=== PATIENT | male | born 1970 | race African-American/Black ===

== ENCOUNTER 2019-12-09 21:06 | Inpatient (IN) ==
[2019-12-09 22:06] LABS: ABS Basophils 0.1 10^3/ul (0-0.2); ABS Eosinophils 0.3 10^3/ul (0-0.6); ABS Lymphocytes 1.4 10^3/ul (1.0-4.8); Eosinophil % 2.4 %; Hematocrit 34 % (42-52); Lymphocyte % 11.7 %; Mean Corpuscular HGB Conc 33 g/dL (31-36); Mean Corpuscular Hemoglobin 29 pg (27-31); Mean Corpuscular Volume 89 fL (80-94); Mean Platelet Volume 9.1 fL (7.4-10.4); Platelet Count 234 10^3/uL (150-450); Red Blood Count 3.79 10^6 /uL (4.18-5.48); Red Cell Distribution Width 14 % (10-15); White Blood Count 11.7 10^3/uL (3.5-10.8)
[2019-12-09 22:13] LABS: INR 1.09 (0.82-1.09)
[2019-12-09 22:18] LABS: ALT 20 U/L (7-52); AST 35 U/L (13-39); Albumin/Globulin Ratio 1.4 (1-3); Alkaline Phosphatase 110 U/L (34-104); Anion Gap 7 mmol/L (2-11); BUN/Creatinine Ratio 10.1 (8-20); Blood Urea Nitrogen 15 mg/dL (6-24); CO2 Carbon Dioxide 26 mmol/L (22-32); Calcium 9.2 mg/dL (8.6-10.3); Chloride 106 mmol/L (101-111); EGFR African American 60.4 (>60); EGFR Non-African American 49.9 (>60); Globulin 2.8 g/dL (2-4); Glucose 114 mg/dL (70-100); Potassium 3.4 mmol/L (3.5-5.0); Sodium 139 mmol/L (135-145); Total Protein 6.8 g/dL (6.4-8.9)
[2019-12-09 22:21] LABS: Troponin I 7.05 ng/mL (<0.03)
[2019-12-09] MEDS ORDERED: Heparin DRIP 25,000 UNITS BAG 25,000 UNITS/500 ML BAG IV SCH (22:45)
[2019-12-09] MEDS ORDERED: Morphine 2 MG/ML SYRINGE IV PRN (23:34)
[2019-12-09] MEDS ORDERED: Potassium Chlor 20 meq TAB.ER PO ONE (23:37)
[2019-12-09 23:47] LABS: C Reactive Protein 68.35 mg/L (<8.01); Cholesterol 135 mg/dL; HDL Cholesterol 28.8 mg/dL; LDL Cholesterol 74 mg/dL; Triglycerides 160 mg/dL
[2019-12-09 23:53] LABS: % Iron Saturation 7 % (15-55); Iron 20 ug/dL (50-212); Total Iron Binding Capacity 300 mcg/dL (250-450); Transferrin 214 mg/dL (203-362); Unsaturated Iron Binding < 285 ug/dL
[2019-12-10] MEDS ORDERED: Iodixanol (CONTRAST) 320 MG/ML 100 ML SDV IV ONE
[2019-12-10 00:16] LABS: Ferritin 149.3 ng/mL (24-336)
[2019-12-10 00:38] LABS: Blood Urea Nitrogen 14 mg/dL (6-24); EGFR African American 70.7 (>60); EGFR Non-African American 58.4 (>60)
[2019-12-10 00:39] LABS: Erythrocyte Sed Rate 50 mm/Hr (0-19)
[2019-12-10 00:48] LABS: Troponin I 6.95 ng/mL (<0.03)
[2019-12-10] MEDS: Heparin 5000 UNITS/ML 1 mL VIAL IV SCH ×2 (01:19→08:13)
[2019-12-10 01:50] LABS: Activated Partial Thrombo Time 33.7 seconds (26.0-38.0)
[2019-12-10 05:20] LABS: ABS Eosinophils 0.3 10^3/ul (0-0.6); ABS Lymphocytes 1.1 10^3/ul (1.0-4.8); ABS Monocytes 0.8 10^3/ul (0-0.8); ABS Neutrophils 8.2 10^3/ul (1.5-7.7); Eosinophil % 2.6 %; Hematocrit 31 % (42-52); Hemoglobin 10.6 g/dL (14.0-18.0); Lymphocyte % 10.6 %; Mean Corpuscular HGB Conc 34 g/dL (31-36); Mean Corpuscular Hemoglobin 30 pg (27-31); Mean Corpuscular Volume 89 fL (80-94); Platelet Count 207 10^3/uL (150-450); Red Blood Count 3.54 10^6 /uL (4.18-5.48); Red Cell Distribution Width 14 % (10-15); White Blood Count 10.4 10^3/uL (3.5-10.8)
[2019-12-10 05:25] LABS: Anion Gap 5 mmol/L (2-11); BUN/Creatinine Ratio 9.9 (8-20); Blood Urea Nitrogen 14 mg/dL (6-24); CO2 Carbon Dioxide 27 mmol/L (22-32); Calcium 8.8 mg/dL (8.6-10.3); Chloride 106 mmol/L (101-111); EGFR African American 63.9 (>60); EGFR Non-African American 52.8 (>60); Glucose 127 mg/dL (70-100); Potassium 3.6 mmol/L (3.5-5.0); Sodium 138 mmol/L (135-145)
[2019-12-10 05:37] LABS: Troponin I 8.09 ng/mL (<0.03)
[2019-12-10 06:02] LABS: HIV 4th Generation Nonreactive (Nonreactive)
[2019-12-10] MEDS ORDERED: Albuterol HFA INHALER 8 gm MDI INH PRN (06:12)
[2019-12-10] MEDS ORDERED: NS 0.9% 1000 ml BAG 1,000 ML IV SCH ×2 (07:45→11:33)
[2019-12-10 08:03] LABS: Troponin I 6.82 ng/mL (<0.03)
[2019-12-10 08:37] LABS: Magnesium 1.6 mg/dL (1.9-2.7)
[2019-12-10] MEDS ORDERED: Midazolam 5 mg/5 ml VIAL 1 mg/ml 5 ml VIAL (5 mg) ONE (09:44)
[2019-12-10] MEDS ORDERED: fentaNYL 100 mcg/2 ml 50 MCG/ML VIAL ONE ×2 (09:44→16:47)
[2019-12-10] MEDS ORDERED: VERAPAMIL 2.5 MG/ML 2 ML VIAL ** 5 mg/2 ml ONE (09:44)
[2019-12-10] MEDS ORDERED: Heparin 1,000 UNIT/ML 10 ml (10,000 UNITS) CATHLAB/DIALYSIS ONE (09:44)
[2019-12-10] MEDS ORDERED: Lidocaine 1% VIAL 10 MG/ML VIAL ONE (09:45)
[2019-12-10] MEDS ORDERED: nitroGLYCERIN DRIP 25,000 MCG/250 ML BTL ONE ×2 (09:45→11:26)
[2019-12-10] MEDS ORDERED: Iohexol 350 (CONTRAST) 200 ML MDV IV ONE (09:45)
[2019-12-10] MEDS ORDERED: Heparin 2 UNITS/ML 1000 mls 2,000 ML IV ONE (09:45)
[2019-12-10] MEDS ORDERED: Iodixanol 320 (CONTRAST) 100 ML SDV ONE ×2 (10:10→10:30)
[2019-12-10] MEDS ORDERED: Magnesium Sulfate IV 3 GM in NS 0.9% 100 ml BAG 100 ML IVPB ONE (10:15)
[2019-12-10] MEDS ORDERED: nitroGLYCERIN DRIP 25,000 MCG/250 ML BTL IV SCH (12:00)
[2019-12-10] MEDS ORDERED: fentaNYL 100 mcg/2 ml 50 MCG/ML VIAL IV SLOW PU ONE (16:41)
[2019-12-10] MEDS ORDERED: Heparin DRIP 25,000 UNITS BAG 25,000 UNITS/500 ML BAG ONE (22:32)
[2019-12-10 22:42] VITALS: BP 127/81
== END 2019-12-10 22:45 | disposition short-term general hospital (02) | DRG 190 ==
LOC: ED 21:06 → MEDTELE 12-10 01:31 → UNDODISIN 12-10 13:42 → ICU 12-10 15:48
PROVIDERS: ADMIT Internal Medicine; ATTEND Internal Medicine

== ENCOUNTER 2020-07-25 11:13 | Inpatient (IN) ==
[2020-07-25] MEDS ORDERED: NS 0.9% 1000 ml BAG 1,000 ML IV ONE (11:42)
[2020-07-25 12:06] LABS: ABS Eosinophils 0.3 10^3/ul (0-0.6); ABS Lymphocytes 1.3 10^3/ul (1.0-4.8); ABS Monocytes 0.6 10^3/ul (0-0.8); ABS Neutrophils 6.7 10^3/ul (1.5-7.7); Eosinophil % 2.8 %; Hematocrit 38 % (42-52); Hemoglobin 12.2 g/dL (14.0-18.0); Lymphocyte % 14.6 %; Mean Corpuscular HGB Conc 33 g/dL (31-36); Mean Corpuscular Hemoglobin 29 pg (27-31); Mean Corpuscular Volume 90 fL (80-94); Mean Platelet Volume 9.1 fL (7.4-10.4); Platelet Count 233 10^3/uL (150-450); Red Blood Count 4.17 10^6 /uL (4.18-5.48); Red Cell Distribution Width 13 % (10-15); White Blood Count 8.9 10^3/uL (3.5-10.8)
[2020-07-25 12:12] LABS: INR 1.04 (0.82-1.09)
[2020-07-25 14:03] LABS: Albumin 3.9 g/dL (3.2-5.2); Albumin/Globulin Ratio 1.4 (1-3); BUN/Creatinine Ratio 14.5 (8-20); Calcium 9.6 mg/dL (8.6-10.3); EGFR African American 69.8 (>60); EGFR Non-African American 57.7 (>60); Globulin 2.7 g/dL (2-4); Potassium 3.7 mmol/L (3.5-5.0); Total Bilirubin 0.3 mg/dL (0.2-1.0); Total Protein 6.6 g/dL (6.4-8.9)
[2020-07-25 14:05] LABS: Troponin I 0.02 ng/mL (<0.03)
[2020-07-25] MEDS ORDERED: Iodixanol (CONTRAST) 320 MG/ML 100 ML SDV IV ONE (14:16)
[2020-07-25 14:36] LABS: Urine Appearance Clear; Urine Bilirubin Negative (Negative); Urine Blood Negative (Negative); Urine Color Yellow; Urine Glucose Negative (Negative); Urine Ketones Negative (Negative); Urine Nitrite Negative (Negative); Urine Protein Negative (Negative); Urine Specific Gravity 1.014 (1.002-1.030); Urine Urobilinogen Negative (Negative)
[2020-07-25 17:16] LABS: TSH Ultra Thyroid Stim Horm 0.76 mcIU/mL (0.34-5.60)
[2020-07-25 17:22] LABS: HDL Cholesterol 24.7 mg/dL
[2020-07-25] MEDS ORDERED: Cyanocobalamin INJ 1,000 MCG/ML VIAL 1 ML VIAL IM ONE (21:52)
[2020-07-25] MEDS: Mometasone/Formoter 200/5 MDI INH SCH (21:55)
[2020-07-25 22:17] LABS: Magnesium 1.8 mg/dL (1.9-2.7)
[2020-07-25] MEDS: Labetalol 300 mg TAB PO SCH (23:28)
[2020-07-26] MEDS: Albuterol HFA INHALER 8 gm MDI INH PRN (04:02)
[2020-07-26] MEDS ORDERED: Heparin 5000 UNITS/ML 1 mL VIAL SUBCUT SCH (06:00)
[2020-07-26] MEDS ORDERED: Perflutren Lipid Microsphere 3 ML VIAL ONE (07:52)
[2020-07-26] MEDS: Labetalol 300 mg TAB PO SCH (09:08)
[2020-07-26] MEDS: Mometasone/Formoter 200/5 MDI INH SCH ×2 (09:53→19:43)
[2020-07-26 11:52] LABS: BUN/Creatinine Ratio 14.4 (8-20); Calcium 9.5 mg/dL (8.6-10.3); EGFR African American 84.5 (>60); EGFR Non-African American 69.8 (>60); Potassium 3.2 mmol/L (3.5-5.0)
[2020-07-26] MEDS ORDERED: Potassium Chlor 20 meq TAB.ER PO ONE ×2 (17:24→22:00)
[2020-07-26] MEDS: Enoxaparin 40 MG/0.4 ML SYR SUBCUT SCH (20:42)
[2020-07-27 06:40] LABS: BUN/Creatinine Ratio 12.9 (8-20); Calcium 9.1 mg/dL (8.6-10.3); EGFR African American 80.3 (>60); EGFR Non-African American 66.4 (>60); Magnesium 1.7 mg/dL (1.9-2.7); Potassium 3.4 mmol/L (3.5-5.0)
[2020-07-27] MEDS ORDERED: Magnesium Sulfate 2 gm BAG 2 GM/50 ML BAG IVPB ONE (07:29)
[2020-07-27] MEDS ORDERED: Potassium Chlor 20 meq TAB.ER PO ONE (08:04)
[2020-07-27] MEDS: Mometasone/Formoter 200/5 MDI INH SCH ×2 (08:49→19:37)
[2020-07-27] MEDS: Enoxaparin 40 MG/0.4 ML SYR SUBCUT SCH (20:11)
[2020-07-27] MEDS ORDERED: Potassium Chlor 20 meq TAB.ER PO SCH (21:00)
[2020-07-28] MEDS: Albuterol HFA INHALER 8 gm MDI INH PRN ×2 (00:13→14:16)
[2020-07-28] MEDS ORDERED: hydrALAZINE 20 mg/ml 1 ML Vial IV IV SLOW PU ONE (03:29)
[2020-07-28] MEDS ORDERED: Labetalol IV 5 MG/ML 20 ml VIAL IV PUSH ONE ×2 (04:21→06:11)
[2020-07-28] MEDS: Labetalol IV 5 MG/ML 20 ml VIAL IV PUSH ONE ×2 (05:04→05:06)
[2020-07-28] MEDS: Potassium Chlor 20 meq TAB.ER PO SCH ×2 (05:49→20:48)
[2020-07-28] MEDS ORDERED: hydrALAZINE 20 mg/ml 1 ML Vial IV IV SLOW PU PRN (05:51)
[2020-07-28] MEDS: Mometasone/Formoter 200/5 MDI INH SCH ×2 (08:15→21:39)
[2020-07-28 08:53] LABS: BUN/Creatinine Ratio 12.8 (8-20); EGFR African American 86.3 (>60); EGFR Non-African American 71.3 (>60); Magnesium 1.9 mg/dL (1.9-2.7); Potassium 3.5 mmol/L (3.5-5.0)
[2020-07-28 08:56] LABS: Troponin I 0.01 ng/mL (<0.03)
[2020-07-28] MEDS ORDERED: Potassium Chlor 20 meq TAB.ER PO ONE (14:58)
[2020-07-28] MEDS: Enoxaparin 40 MG/0.4 ML SYR SUBCUT SCH (20:47)
[2020-07-29 05:45] LABS: BUN/Creatinine Ratio 14.8 (8-20); Calcium 9.3 mg/dL (8.6-10.3); EGFR African American 81.1 (>60); Magnesium 1.8 mg/dL (1.9-2.7); Potassium 3.8 mmol/L (3.5-5.0)
[2020-07-29] MEDS ORDERED: Magnesium Sulfate 2 gm BAG 2 GM/50 ML BAG IVPB ONE (08:13)
[2020-07-29] MEDS: Mometasone/Formoter 200/5 MDI INH SCH ×2 (08:28→20:05)
[2020-07-29] MEDS: Potassium Chlor 20 meq TAB.ER PO SCH ×2 (08:49→21:27)
[2020-07-29] MEDS ORDERED: Potassium Chlor 20 meq TAB.ER PO ONE (11:00)
[2020-07-29] MEDS: Enoxaparin 40 MG/0.4 ML SYR SUBCUT SCH (21:29)
[2020-07-30 07:03] LABS: BUN/Creatinine Ratio 13.9 (8-20); Calcium 9.2 mg/dL (8.6-10.3); EGFR African American 81.1 (>60); Potassium 3.7 mmol/L (3.5-5.0)
[2020-07-30] MEDS: Mometasone/Formoter 200/5 MDI INH SCH ×2 (07:37→19:48)
[2020-07-30] MEDS: Potassium Chlor 20 meq TAB.ER PO SCH ×2 (07:42→23:05)
[2020-07-30] MEDS: Albuterol HFA INHALER 8 gm MDI INH PRN (19:48)
[2020-07-30] MEDS: Enoxaparin 40 MG/0.4 ML SYR SUBCUT SCH (23:05)
[2020-07-31] MEDS: Mometasone/Formoter 200/5 MDI INH SCH (07:32)
[2020-07-31] MEDS: Potassium Chlor 20 meq TAB.ER PO SCH (10:07)
[2020-07-31 15:41] VITALS: BP 151/103
== END 2020-07-31 15:35 | DRG 45 ==
LOC: MEDTELE 11:13 → ED 11:13 → OBSVTOIN 21:24 → MEDTELE 23:20
PROVIDERS: ADMIT Internal Medicine; ATTEND Internal Medicine